=== PATIENT | female | born 1960 ===

== ENCOUNTER 2018-09-26 15:22 | Outpatient (CLI) | payer OTHER ==
[~2018-09-26] VITALS: Ht 165.1 cm; Wt 55.8 kg
== END 2018-09-26 15:40 | disposition home or self-care (01) ==
LOC: OFIC 805 15:22
DX: J30.89 Other allergic rhinitis (principal); J34.2 Deviated nasal septum; H05.409 Unspecified enophthalmos, unspecified eye; Q15.8 Other specified congenital malformations of eye